=== PATIENT | female | born 1995 | race Caucasian/White ===

== ENCOUNTER 2019-09-28 19:01 | Emergency (ER) | payer OTHER ==
[2019-09-28 19:25] VITALS: BP 135/86
--- NOTE | 2019-09-28 19:51 | UC ---
Skin Complaint HPI - HPI Summary HPI Summary: 23-year-old female presents with complaints of a rash to her chest and abdomen 2 weeks. States started as a couple of red, raised, erythematous lesions that have since spread. States she has one large fluid-filled lesion to her left upper chest. States lesions are not painful or pruritic. Reports has appointment with dermatology in 2 weeks. Denies fever, chills, sore throat, difficulty breathing, or drainage from the lesions. - History of Current Complaint Chief Complaint: UCRash Time Seen by Provider: 09/28/19 19:46 Stated Complaint: RASH Hx Obtained From: Patient Pain Intensity: 0 - Allergy/Home Medications Allergies/Adverse Reactions: Allergies Allergy/AdvReac Type Severity Reaction Status Date / Time No Known Allergies Allergy Verified 09/28/19 19:25 Home Medications: Home Medications Oral Contraceptives DAILY 09/28/19 [History] PMH/Surg Hx/FS Hx/Imm Hx Previously Healthy: Yes - Denies significant PMH - Surgical History Surgical History: None - Family History Known Family History: Positive: Non-Contributory - Social History Occupation: Employed Full-time Lives: With Family Alcohol Use: Occasionally Substance Use Type: None Smoking Status (MU): Never Smoked Tobacco Review of Systems All Other Systems Reviewed And Are Negative: Yes Constitutional: Negative: Fever, Chills Skin: Positive: Other - See HPI ENT: Negative: Sore Throat, Ear Ache, Nasal Discharge, Sinus Congestion, Sinus Pain/Tenderness Respiratory: Negative: Shortness Of Breath, Cough Cardiovascular: Positive: Negative Gastrointestinal: Positive: Negative Genitourinary: Positive: Negative Musculoskeletal: Positive: Negative Neurological/Mental Status: Positive: Negative Is Patient Immunocompromised?: No Physical Exam - Summary Physical Exam Summary: GENERAL APPEARANCE: Well developed, well nourished, alert and cooperative, and appears to be in no acute distress. CARDIAC: Normal S1 and S2. No S3, S4 or murmurs. Rhythm is regular. There is no peripheral edema, cyanosis or pallor. Extremities are warm and well perfused. Capillary refill is less than 2 seconds. Peripheral pulses intact. LUNGS: Clear to auscultation without rales, rhonchi, wheezing or diminished breath sounds. ABDOMEN: Positive bowel sounds. Soft, nondistended, nontender. No guarding or rebound. No masses or hepatosplenomegally. MUSKULOSKELETAL: ROM intact to all extremities. No joint erythema or tenderness. Normal muscular development. Normal gait. SKIN: Multiple discrete raised, erythematous, maculopapular lesions ranging in size from 0.5-1.5 cm in diameter. Few lesions are crusted. Single bullous lesion measuring 2.5 cm x 1.5 cm to the left upper anterior chest without induration. Triage Information Reviewed: Yes Vital Signs: Initial Vital Signs Temp 100.0 F 09/28/19 19: Pulse 107 09/28/19: Resp 16 09/28/19: BP 135/86 09/28/19 19: Pulse Ox 100 09/28/19 19: Vital Signs Reviewed: Yes Procedures - Procedure Summary Procedure Summary: PROCEDURE NOTE: Incision and drainage lesion to left anterior upper chest PROCEDURE: Informed consent was obtained and timeout protocol was performed prior to initiating the procedure. The skin was prepped with Betadine. The site was anesthetized with 1% lidocaine without epinephrine. A 1 cm linear incision was made and the purulent material expressed. A culture was obtained and sent. A bulky gauze dressing was then placed. Bleeding was minimal. The patient tolerated the procedure well without complications. Standard post- procedure care is explained and return precautions were given. Course/Dx - Course Course Of Treatment: 23-year-old female presents with complaints of a rash to her chest and abdomen 2 weeks. States started as a couple of red, raised, erythematous lesions that have since spread. States she has one large fluid-filled lesion to her left upper chest. States lesions are not painful or pruritic. Reports has appointment with dermatology in 2 weeks. Denies fever, chills, sore throat, difficulty breathing, or drainage from the lesions. Multiple discrete raised, erythematous, maculopapular lesions ranging in size from 0.5-1.5 cm in diameter. Mildly elevated temperature of 100.0 F. Mild tachycardia otherwise VSS. Patient had multiple discrete raised, erythematous, maculopapular lesions ranging in size from 0.5-1.5 cm in diameter. Few lesions are crusted. Single bullous lesion measuring 2.5 cm x 1.5 cm to the left upper anterior chest without induration. An I&D was performed to the bullous lesion to the anterior chest. A small amount of purulent drainage was expressed. A wound culture was obtained and sent. Discussed with patient that I am concerned that her lesions are likely from a bacterial infection and will start her on Bactrim DS 1 tab twice daily for 10 days. First dose was given in the clinic. She is to keep her appointment with dermatology as scheduled. Anticipatory guidance and warning symptoms reviewed with patient. Verbalizes understanding and agrees with POC. - Differential Diagnoses - Skin Complaint Differential Diagnoses: Abscess, Cellulitis, Contact Dermatitis, Local Allergic Reaction, MRSA, Tinea - Diagnoses Provider Diagnosis: Rash and nonspecific skin eruption Discharge ED - Sign-Out/Discharge Documenting (check all that apply): Patient Departure All imaging exams completed and their final reports reviewed: No Studies - Discharge Plan Condition: Stable Disposition: HOME Prescriptions: Sulfamethox/Trimethoprim DS* [Bactrim DS 800/160 TAB*] 1 tab PO BID #20 tab Patient Education Materials: Impetigo (ED) Referrals: Cindy Roberto MD [Primary Care Provider] - Additional Instructions: I suspect that your rash may be caused by a bacterial infection and I am going to start you on an antibiotic to treat the infection. We did take a wound culture from the lesion that we opened and drained. We will contact you if we need to make any changes in your treatment. Start Bactrim DS 1 tablet twice daily for 10 days. Be sure to take the entire course unless instructed otherwise. Leave the dressing that was applied in the clinic on until tomorrow. Starting tomorrow you may remove the dressing and shower as normal. You should continue to keep a dressing over the wound especially if it is draining. Keep your appointment with dermatology as scheduled. Seek immediate medical attention if you develop a fever greater than 100.5 F, shaking chills, you get redness that rapidly spreads, severe pain that is not managed with [id number] pain medications, or any worsening of symptoms. - Billing Disposition and Condition Condition: STABLE Disposition: Home - Attestation Statements Provider Attestation: This patient was not seen by me. I was available for consult. Chart reviewed. brent
[2019-09-28] MEDS ORDERED: Lidocaine 1% MPF ** 5 ML VIAL INJ ONE (20:05)
[2019-09-28] MEDS ORDERED: Sulfamethox/Trimethoprim DS 800/160* TAB PO ONE (20:28)
--- NOTE | 2019-09-29 12:15 | UC ---
- Progress Note Progress Note: Wound culture reviewed. S. aureus positive and MRSA positive. Patient was placed on Bactrim DS which should cover these pathogens. The sensitivity report is still pending. Nursing to contact patient with results. Course/Dx - Diagnoses Provider Diagnoses: Rash and nonspecific skin eruption Discharge ED - Sign-Out/Discharge Documenting (check all that apply): Patient Departure All imaging exams completed and their final reports reviewed: No Studies - Discharge Plan Condition: Stable Disposition: HOME Prescriptions: Sulfamethox/Trimethoprim DS* [Bactrim DS 800/160 TAB*] 1 tab PO BID #20 tab Patient Education Materials: Impetigo (ED) Referrals: Cindy Roberto MD [Primary Care Provider] - Additional Instructions: I suspect that your rash may be caused by a bacterial infection and I am going to start you on an antibiotic to treat the infection. We did take a wound culture from the lesion that we opened and drained. We will contact you if we need to make any changes in your treatment. Start Bactrim DS 1 tablet twice daily for 10 days. Be sure to take the entire course unless instructed otherwise. Leave the dressing that was applied in the clinic on until tomorrow. Starting tomorrow you may remove the dressing and shower as normal. You should continue to keep a dressing over the wound especially if it is draining. Keep your appointment with dermatology as scheduled. Seek immediate medical attention if you develop a fever greater than 100.5 F, shaking chills, you get redness that rapidly spreads, severe pain that is not managed with [id number] pain medications, or any worsening of symptoms. - Billing Disposition and Condition Condition: STABLE Disposition: Home
== END 2019-09-28 20:47 | disposition home or self-care (01) ==
LOC: UCCORT 19:01
DX: R21 Rash and other nonspecific skin eruption (principal)
CPT/HCPCS: 10060; 87070; 87077; 87186; 87205; 87640; 87641; 99202; A9270-GY; G0463